=== PATIENT | male | born 1995 | race American Indian/Alaskan Native ===

== ENCOUNTER 2017-04-26 12:23 | Emergency (ER) | payer OTHER ==
[2017-04-26 12:45] VITALS: BP 119/72
[2017-04-26] MEDS ORDERED: TORADOL IM ONE (14:07)
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
== END 2017-04-26 15:13 | disposition home or self-care (01) ==
LOC: ED 12:23
DX: S16.1XXA Strain of muscle, fascia and tendon at neck level, initial encounter (principal); S39.012A Strain of muscle, fascia and tendon of lower back, initial encounter; F12.90 Cannabis use, unspecified, uncomplicated; V87.7XXA Person injured in collision between other specified motor vehicles (traffic), initial encounter; Y93.89 Activity, other specified; Y99.9 Unspecified external cause status; Y92.410 Unspecified street and highway as the place of occurrence of the external cause
CPT/HCPCS: 96372; 99282; J1885